=== PATIENT | female | born 1955 | race Caucasian/White ===

== ENCOUNTER 2016-11-05 15:08 | Inpatient (IN) | payer OTHER ==
[~2016-11-05] VITALS: Ht 162.6 cm; Wt 97.5 kg
[~2016-11-05 15:08] MED LIST: [UNRECOGNIZED DRUG - REMARK]
[2016-11-05 15:17] VITALS: BP 114/60
[2016-11-05] MEDS ORDERED: ASPIRIN 81 MG TAB.CHEW PO ONE (15:25)
[2016-11-05 16:04] LABS: BASOPHILS # (AUTO) 0.3 K/uL (0.00-0.22); EOSINOPHILS # (AUTO) 0.1 K/uL (0-0.4); HEMATOCRIT 44.9 % (36-48); HEMOGLOBIN 14.9 g/dL (12.0-16.0); LYMPHOCYTES # (AUTO) 2.3 K/uL (2.5-16.5); MEAN CORPUSCULAR HEMOGLOBIN 30 pg (27-31); MEAN CORPUSCULAR HGB CONC 33 g/dL (33-37); MEAN CORPUSCULAR VOLUME 90 fL (80-94); MONOCYTES # (AUTO) 0.7 K/uL (0.8-1.0); PLATELET COUNT (AUTO) 265 K/uL (140-450); RED BLOOD CELL COUNT(AUTO) 4.98 MIL/uL (4.20-5.40); RED CELL DISTRIBUTION WIDTH 13.3 % (11.6-13.7); WHITE BLOOD COUNT (AUTO) 8.4 K/uL (4.8-10.8)
[2016-11-05 16:04] LABS: BILIRUBIN,URINE NEGATIVE (NEGATIVE); BLOOD, URINE 1+ (NEGATIVE); LEUKOCYTE ESTERASE ,URINE 2+ (NEGATIVE); NITRITE, URINE NEGATIVE (NEGATIVE); UGLUCOSE NEGATIVE (NEGATIVE)
[2016-11-05 16:05] LABS: APPEARANCE,URINE HAZY (CLEAR); COLOR,URINE STRAW (YELLOW)
[2016-11-05 16:19] LABS: ANION GAP 11.2 (8-16); CARBON DIOXIDE 27.7 mmol/L (21-32); CREATININE 0.9 mg/dL (0.6-1.3); POTASSIUM 3.9 mmol/L (3.5-5.1)
[2016-11-05 16:22] LABS: RBC,URINE NONE SEEN /HPF (0-5); WBC,URINE 20-60 /HPF (0-5)
[2016-11-05 16:23] LABS: PROTHROMBIN TIME 10.9 secs (10.8-13.4)
[2016-11-05 16:24] LABS: ALBUMIN 4.1 g/dL (3.4-5.0); TOTAL BILIRUBIN 1.1 mg/dL (0.0-1.0)
--- NOTE | 2016-11-05 17:59 | NUR ---
PT TO BED 4.
--- NOTE | 2016-11-05 17:59 | NUR ---
61F BIB FAMILY MID-CHEST PAIN X 0900 TODAY. HX: PT STATES " MENTALLY SLOW", HYPERLIPIDEMIA RX: FAMILY STATES DOES NOT REMEMBER DENIES N/V/D; SKIN IS PINK/WARM/DRY; AAOX4 WITH EVEN AND STEADY GAIT; LUNGS CLEAR BL; HR EVEN AND REGULAR; PT DENIES ANY FEVER, CP, SOB, OR COUGH AT THIS TIME; PATIENT STATES CHEST PAIN OF 1/10 AT THIS TIME; VSS; PATIENT POSITIONED FOR COMFORT; HOB ELEVATED; BEDRAILS UP X2; BED DOWN. ER MD MADE AWARE OF PT STATUS.
[2016-11-05] MEDS ORDERED: ASPIRIN 81 MG TAB.CHEW ONE (18:10)
--- NOTE | 2016-11-05 19:03 | NUR ---
PT RESTING COMFORTABLY AT THIS TIME NO ACUTE DISTRESS NOTED, WILL CONTINUE TO MONITOR
[2016-11-05] MEDS ORDERED: MORPHINE SULFATE 2 MG/ML SYR IVP ONE (19:25)
[2016-11-05] MEDS ORDERED: NITROGLYCERIN 2% 1 GM PKT TP ONE (19:25)
--- NOTE | 2016-11-05 19:28 | NUR ---
REPORT GIVEN TO RN CLARIZE
--- NOTE | 2016-11-05 19:30 | NUR ---
RECEIVED REPORT FROM ANGELINA PAULSON. AAOX4. NO SIGNS OF DISTRESS AT THIS TIME.
[2016-11-05] MEDS ORDERED: DOCUSATE SODIUM 100 MG GELCAP PO PRN (19:50)
[2016-11-05] MEDS ORDERED: ONDANSETRON 4 MG/2 ML VIAL IM/IVP PRN (19:50)
[2016-11-05] MEDS ORDERED: MORPHINE SULFATE 2 MG/ML SYR IVP PRN (19:50)
[2016-11-05] MEDS ORDERED: ACETAMINOPHEN 325 MG TAB PO PRN (19:50)
[2016-11-05] MEDS ORDERED: HYDROcodone/APAP 7.5/325 MG 1 TAB PO PRN (19:50)
[2016-11-05 19:56] LABS: CHOL/HDL RATIO 3.4 (1-4.5)
--- NOTE | 2016-11-05 20:00 | NUR ---
DR. VICTOR AT BEDSIDE EVALUATING PT.
[2016-11-05 20:07] LABS: CREATINE KINASE MB 0.2 ng/mL (0-3.6)
[2016-11-05] MEDS ORDERED: cefTRIAXone 1,000 MG VIAL ONE (20:28)
--- NOTE | 2016-11-05 20:45 | NUR ---
Patient will be admitted to care of DR. ARNETT. Admited to TELE . Will go to room 120A. Belongings list completed. Report to ANGELINA HOOPER.
[2016-11-05 20:46] LABS: FREE T4 (FREE THYROXINE) 0.9 ng/dL (0.76-1.46); MAGNESIUM 2.1 mg/dL (1.8-2.4); PHOSPHORUS 3.7 mg/dL (2.5-4.9); THYROID STIMULATING HORMONE 1.34 uIU/mL (0.34-3.74)
--- NOTE | 2016-11-05 21:00 | NUR ---
PT TRANSFERRED TO TELE RM 120-A ON GUARDED CONDITION VIA GURNEY ACCOMPANIED BY RN AND EMT.
[2016-11-05 21:15] VITALS: BP 110/59
--- NOTE | 2016-11-05 21:15 | NUR ---
PATIENT ADMITTED TO THE UNIT FROM ER. PATIENT AWAKE, ALERT, AND ORIENTED. NO SIGNS AND SYMPTOMS OF DISTRESS NOTED. PATIENT COMPLAINS OF 1/10 CHEST PAIN. NO SOB. IV SITE NOTED ON LEFT HAND, SALINE LOCKED. NITROGLYCERIN PATCH NOTED ON LEFT UPPER CHEST. BED IN LOWEST POSITION, SIDE RAILS UP AND CALL LIGHT WITHIN REACH. WILL CONTINUE TO MONITOR.
[2016-11-05] MEDS: NACL 0.9% 1,000 ML IV SCH (22:00)
--- NOTE | 2016-11-05 23:43 | NUR ---
SPOKE WITH DR. VICTOR ABOUT PATIENT'S NITROGLYCERIN PATCH AND WHETHER TO KEEP IT ON OVERNIGHT. PATIENT COMPLAINS OF NO CHEST PAIN. AND VITAL SIGNS ARE WITHIN NORMAL LIMITS. DR. VICTOR SAID IT WAS OK TO REMOVE PATCH. WILL CONTINUE TO MONITOR PATIENT.
[2016-11-06] VITALS: BP 108/61
[2016-11-06 04:00] VITALS: BP 101/67
[2016-11-06 07:14] LABS: BASOPHILS # (AUTO) 0.2 K/uL (0.00-0.22); BASOPHILS % (AUTO) 2.1 % (0.0-2.0); EOSINOPHILS # (AUTO) 0.2 K/uL (0-0.4); EOSINOPHILS % (AUTO) 2.2 % (0.0-4.0); HEMATOCRIT 39.4 % (36-48); HEMOGLOBIN 13.5 g/dL (12.0-16.0); LYMPHOCYTES # (AUTO) 2.7 K/uL (2.5-16.5); LYMPHOCYTES % (AUTO) 32.6 % (20.5-51.1); MEAN CORPUSCULAR HEMOGLOBIN 31 pg (27-31); MEAN CORPUSCULAR HGB CONC 34 g/dL (33-37); MEAN CORPUSCULAR VOLUME 90 fL (80-94); MONOCYTES # (AUTO) 0.5 K/uL (0.8-1.0); NEUTROPHILS # (AUTO) 4.7 K/uL (1.8-7.7); NEUTROPHILS % (AUTO) 57.1 % (42.2-75.2); PLATELET COUNT (AUTO) 227 K/uL (140-450); RED BLOOD CELL COUNT(AUTO) 4.37 MIL/uL (4.20-5.40); RED CELL DISTRIBUTION WIDTH 13.2 % (11.6-13.7); WHITE BLOOD COUNT (AUTO) 8.3 K/uL (4.8-10.8)
--- NOTE | 2016-11-06 07:16 | NUR ---
PATIENT REPORT GIVEN AT BEDSIDE TO MORNING NURSE. PATIENT IS IN STABLE CONDITION.
--- NOTE | 2016-11-06 07:17 | NUR ---
RECEIVED REPORT FROM [employer] AGENT RN. PT IS AWAKE, AAO X 4. NO COMPLAINT OF PAIN OR DISCOMFORT AT THIS TIME. NO SIGNS OF ACUTE DISTRESS NOTED. IV G20 TO LEFT HAND FLOWING THE ORDERED IVF. PT IS RESTING COMFORTABLY IN BED. BED IN LOWEST POSITION AND CALL LIGHT WITHIN REACH. WILL CONTINUE TO MONITOR.
[2016-11-06 07:24] LABS: CARBON DIOXIDE 26.8 mmol/L (21-32); CREATININE 0.8 mg/dL (0.6-1.3); POTASSIUM 3.8 mmol/L (3.5-5.1)
[2016-11-06 07:47] VITALS: BP 121/74
[2016-11-06 08:18] LABS: T4 (THYROXINE) 9.3 ug/dL (4.5-12.0)
[2016-11-06] MEDS ORDERED: SIMVASTATIN 10 MG TAB PO SCH ×2 (08:30→21:00)
[2016-11-06] MEDS: LACTOBACILLUS RHAMNOSUS GG 1 EACH CAP PO SCH (09:01)
--- NOTE | 2016-11-06 10:40 | NUR ---
PATIENT HAS BEEN SCREENED AND CATEGORIZED LOW NUTRITION RISK. PATIENT WILL BE SEEN WITHIN 7 DAYS OF ADMISSION. 11/12/16 VINNIE OSEGUERA MBA, RD
--- NOTE | 2016-11-06 11:03 | NUR ---
FAMILY, LAVON CAME, AND ACCORDING TO HIM PT TAKES, PAROXETINE 20 MG QHS AT HOME AND MULTIVITAMINS. DR. MOORE MADE AWARE AND TO CHECK AND PUT IN ORDER.
[2016-11-06] MEDS ORDERED: PAX20 PO (11:22)
[2016-11-06] MEDS ORDERED: [UNRECOGNIZED DRUG - CODE] PO (11:22)
[2016-11-06 11:46] VITALS: BP 108/65
[2016-11-06] MEDS ORDERED: ACARBOSE 50 MG TAB PO SCH (12:00)
[2016-11-06] MEDS: NACL 0.9% 1,000 ML IV SCH (12:16)
[2016-11-06 16:00] VITALS: BP 106/60
--- NOTE | 2016-11-06 16:42 | NUR ---
ASSISTED PT GOING TO THE BATHROOM. PT STABLE, ON STANDBY ASSIST. NO SOB, DENIES ANY PAIN OR DISCOMFORT AT THIS TIME.
[2016-11-06] MEDS ORDERED: PARoxetine 20 MG TAB PO SCH (17:00)
--- NOTE | 2016-11-06 19:28 | NUR ---
PT KEPT CLEAN, DRY AND COMFORTABLE, NEEDS ATTENDED, ENDORSED TO NEXT SHIFT ON STABLE CONDITION, FOR CONTINUITY OF CARE. NO SOB NOTED. DENIES ANY PAIN OR DISCOMFORT AT THIS TIME.
--- NOTE | 2016-11-06 19:29 | NUR ---
PATIENT REPORT RECEIVED FROM MORNING NURSE. PATIENT IS AWAKE, ALERT AND ORIENTED. NO SIGNS AND SYMPTOMS OF DISTRESS NOTED. NO COMPLAINTS OF PAIN AT THIS TIME. IV SITE NOTED ON LEFT HAND. IVF INFUSING WELL. SCD IS IN PLACE. BED IN LOWEST POSITION, SIDE RAILS UP AND CALL LIGHT WITHIN REACH. WILL CONTINUE TO MONITOR.
[2016-11-06 20:00] VITALS: BP 99/62
--- NOTE | 2016-11-06 21:00 | NUR ---
QUALITY PROCESS AUDITOR ASSISTED PATIENT TO RESTROOM. PATIENT VOIDED. NO SIGNS AND SYMPTOMS OF DISTRESS NOTED. NO SOB. WILL CONTINUE TO MONITOR
[2016-11-07] VITALS: BP 111/67
--- NOTE | 2016-11-07 | NUR ---
CHECKED ON PATIENT, PATIENT IS ASLEEP. NO SIGNS AND SYMPTOMS OF DISTRESS NOTED. BED IN LOWEST POSITION, SIDE RAILS UP AND CALL LIGHT WITHIN REACH. WILL CONTINUE TO MONITOR.
[2016-11-07 04:00] VITALS: BP 121/72
[2016-11-07] MEDS: NACL 0.9% 1,000 ML IV SCH (04:45)
--- NOTE | 2016-11-07 07:20 | NUR ---
PATIENT REPORT GIVEN AT BEDSIDE TO MORNING NURSE. PATIENT IS IN STABLE CONDITION
--- NOTE | 2016-11-07 07:25 | NUR ---
RECEIVED PT REPORT AT BEDSIDE FROM NIGHT NURSE. PATIENT IS AAOX4 AND SHOWS NO S/S OF ACUTE DISTRESS ON ROOM AIR. PT DENIES PAIN. PATIENT IV NOTED ON THE L H WITH IVF'S INFUSING WELL. SKIN IS INTACT. PATIENT ON TELE MONITOR. DISCUSSED WITH PT POC FOR TODAY AND VERBALIZED UNDERSTANDING. THE BED IS LOWERED WITH CALL LIGHT WITHIN REACH. FALL RISK PROTOCOL IS IN PLACE WITH SIGNS POSTED AND BED ALARM ACTIVATED.
[2016-11-07 08:00] VITALS: BP 111/59
[2016-11-07] MEDS: LACTOBACILLUS RHAMNOSUS GG 1 EACH CAP PO SCH (08:43)
--- NOTE | 2016-11-07 08:45 | NUR ---
ADMINISTERED SCHEDULED MEDICATIONS. PATIENT TOLERATED WELL. THE BED IS LOWERED WITH CALL LIGHT WITHIN REACH. ALL NEEDS MET AT THIS TIME.
[2016-11-07] MEDS ORDERED: MULTIVITAMIN 1 TAB PO SCH (09:00)
--- NOTE | 2016-11-07 10:00 | NUR ---
PATIENT PULLED IV OUT WITH CANNULA INTACT. PT REFUSES TELE BOX. PT IS DRESSED AND STATED DR LET HER KNOW SHE WILL BE LEAVING AT [address]. NOTIF[address] MOORE OF NO IV ACCESS AND TELE BOX REFUSAL. DR WILL PLACE ORDERS FOR MS AND OKAY TO HAVE NO IV ACCESS. STATES HE DID NOT TELL HER SHE WILL BE DC BY 1200. PT IS AWARE DC WILL BE SOMETIME AFTER 1200. PT AGREES AND IS OKAY. ALL NEEDS MET AT THIS TIME.
[2016-11-07] MEDS ORDERED: NITR100C7 PO (11:23)
[2016-11-07 12:00] VITALS: BP 134/70
--- NOTE | 2016-11-07 12:15 | NUR ---
PATIENT IS SITTING IN BED AND SHOWS NO S/S OF ACUTE DISTRESS ON ROOM AIR. ALL NEEDS MET AT THIS TIME.
--- NOTE | 2016-11-07 13:55 | NUR ---
PT HAS BEEN DISCHARGED. ALL DISCHARGE INSTRUCTIONS GIVEN ALL PAPERWORK SIGNED. ALL QUESTIONS ANSWERED. PT VERBALIZED UNDERSTANDING OF CONTINUITY OF CARE AT HOME. ALL BELONGINGS WITH PATIENT. PATIENT REFUSED WHEELCHAIR AND AMB OFF UNIT WITH FAMILY MEMBER PRESENT AT SIDE. PATIENT LEFT UNIT IN STABLE CONDITION.
== END 2016-11-07 13:55 | disposition home or self-care (01) | DRG 206 ==
LOC: MED 15:08 → MTU 20:15
PROVIDERS: ADMIT Family Medicine Sports Medicine; ATTEND Family Medicine Sports Medicine
DX: M94.0 Chondrocostal junction syndrome [Tietze] (principal); N39.0 Urinary tract infection, site not specified; K21.9 Gastro-esophageal reflux disease without esophagitis; E78.5 Hyperlipidemia, unspecified; E66.9 Obesity, unspecified; F17.210 Nicotine dependence, cigarettes, uncomplicated; Z68.37 Body mass index [BMI] 37.0-37.9, adult; Z98.51 Tubal ligation status
CPT/HCPCS: 36415; 71010; 80048; 80053; 81001; 81025; 82550; 82553; 83036; 83735; 83880; 84100; 84436; 84439; 84443; 84479; 84484; 85025; 85379; 85610; 85730; 87081; 87086; 93005; 96374; 99285; J0696; J2270; J2405; J7030; J7042; J7060

== ENCOUNTER 2017-06-10 15:48 | Emergency (ER) | payer OTHER, MEDICAID ==
[~2017-06-10] VITALS: Ht 162.6 cm; Wt 99.1 kg
[~2017-06-10 15:48] MED LIST changes: +NITR100C7 PO; +PAX20 PO; +[UNRECOGNIZED DRUG - CODE] PO; -[UNRECOGNIZED DRUG - REMARK]
[2017-06-10 15:52] VITALS: BP 122/66
--- NOTE | 2017-06-10 16:00 | NUR ---
62 Y/O F THAT WAS BIB BOYFRIEND DUE TO A BITE ON HER R CHEST AREA. PT. HAS 0/10 PAIN. PT. STATES " I WENT TO SLEEP AND WHEN I WOKE UP ON 06/09/17 I WOKE UP WITH THE BITE ON MY CHEST AND IT ITCHES A LOT AT TIMES BUT I DO NOT HAVE ANY PAIN".PT HAS ABOUT A QUARTER SIZE REDNESS AREA TO HER R SIDE OF HER CHEST THAT IS HOT TO TOUCH AND UPON PALPATION A HARD NODULE FELT. PT. DENIES SOB , DENIES CHEST PAIN, NO N/V/D, DENIES HAVING ANY COUGH. BOYFRIEND AT BEDSIDE. DR. PUGH NOTIFIED OF PT STATUS . SAFETY PRECAUTIONS IMPLEMENTED. WILL CONTINUE TO MONITOR.
--- NOTE | 2017-06-10 16:03 | NUR ---
PT AMBULATES TO BED 4
[2017-06-10] MEDS ORDERED: BACITRACIN OINT 500 UNITS/GM PKT TP ONE (16:20)
--- NOTE | 2017-06-10 16:25 | NUR ---
ATTEMPTED TO D/C PT AT THIS TIME. PT'S SPOUSE REFUSED D/C AND REQUESTED TO SPEAK W/ THE MD. SPOUSE STATED, "I KNOW SOMETHING IS WRONG AND I WANT AN XRAY." MD HERNANDEZ NOTIFIED OF PT'S REQUEST.
--- NOTE | 2017-06-10 16:27 | NUR ---
DR. PUGH IN ROOM WITH PATIENT.
[2017-06-10 16:34] VITALS: BP 122/66
--- NOTE | 2017-06-10 16:34 | NUR ---
Patient discharged with v/s stable. Written and verbal after care instructions given and explained. Patient verbalized understanding. Ambulatory with steady gait. All questions addressed prior to discharge. Advised to follow up with PMD.
== END 2017-06-10 16:34 | disposition home or self-care (01) ==
LOC: MED 15:48
DX: S20.361A Insect bite (nonvenomous) of right front wall of thorax, initial encounter (principal); W57.XXXA Bitten or stung by nonvenomous insect and other nonvenomous arthropods, initial encounter; Y93.89 Activity, other specified; Y92.89 Other specified places as the place of occurrence of the external cause; Y99.8 Other external cause status
CPT/HCPCS: 99283

== ENCOUNTER 2018-03-26 13:45 | Emergency (ER) | payer OTHER, MEDICAID ==
[~2018-03-26] VITALS: Ht 165.1 cm; Wt 90.7 kg
[2018-03-26 14:00] VITALS: BP 109/65
--- NOTE | 2018-03-26 14:00 | NUR ---
PATIENT AMBULATED TO ER BED 3.
--- NOTE | 2018-03-26 14:05 | NUR ---
PT IS A 63 Y/O FEMALE WHO PRESENTS TO THE ED S/P FALL REPORTS R SHOULDER/R KNEE PAIN. PT REPORTS 7/10 ACHING R KNEE AND R SHOULDER PAIN. NO LOC, NO OBVIOUS TRAUMA/DEFORMITY. PT DENIES CP, SOB, N/V/D. PT AWAKE AND ALERT, RR EVEN/UNLABORED. PT REPOSITIONED FOR COMFORT, BED IN LOWEST POSITION. ER MD DR. GAYLE NOTIFIED. WILL CONTINUE TO MONITOR. PMH---MENTAL RETARDATION NKA
--- NOTE | 2018-03-26 15:31 | NUR ---
Patient being evaluated by physician at bedside.
[2018-03-26 15:54] VITALS: BP 110/69
== END 2018-03-26 15:54 | disposition home or self-care (01) ==
LOC: MED 13:45
DX: S43.401A Unspecified sprain of right shoulder joint, initial encounter (principal); Z79.899 Other long term (current) drug therapy; W01.0XXA Fall on same level from slipping, tripping and stumbling without subsequent striking against object, initial encounter; Y93.89 Activity, other specified; Y92.481 Parking lot as the place of occurrence of the external cause; Y99.8 Other external cause status
CPT/HCPCS: 73020; 73501; 99283

== ENCOUNTER 2018-04-25 22:23 | Emergency (ER) | payer OTHER, MEDICAID ==
[~2018-04-25] VITALS: Ht 165.1 cm; Wt 102.2 kg
[2018-04-25 22:35] VITALS: BP 127/56
--- NOTE | 2018-04-25 22:37 | NUR ---
TO LOBBY, VSS.
[2018-04-25 23:08] LABS: BASOPHILS # (AUTO) 0.1 K/uL (0.00-0.22); BASOPHILS % (AUTO) 0.7 % (0.0-2.0); EOSINOPHILS # (AUTO) 0.2 K/uL (0-0.4); EOSINOPHILS % (AUTO) 2.6 % (0.0-4.0); HEMATOCRIT 39.6 % (36-48); HEMOGLOBIN 13.8 g/dL (12.0-16.0); LYMPHOCYTES # (AUTO) 3.1 K/uL (2.5-16.5); LYMPHOCYTES % (AUTO) 33.6 % (20.5-51.1); MEAN CORPUSCULAR HEMOGLOBIN 30 pg (27-31); MEAN CORPUSCULAR HGB CONC 35 g/dL (33-37); MEAN CORPUSCULAR VOLUME 86.9 fL (80-94); MONOCYTES # (AUTO) 0.6 K/uL (0.8-1.0); MONOCYTES % (AUTO) 6.5 % (1.7-9.3); NEUTROPHILS # (AUTO) 5.2 K/uL (1.8-7.7); NEUTROPHILS % (AUTO) 56.6 % (42.2-75.2); PLATELET COUNT (AUTO) 257 K/uL (140-450); RED BLOOD CELL COUNT(AUTO) 4.55 MIL/uL (4.20-5.40); RED CELL DISTRIBUTION WIDTH 14.2 % (11.6-13.7); WHITE BLOOD COUNT (AUTO) 9.2 K/uL (4.8-10.8)
[2018-04-25 23:25] LABS: PROTHROMBIN TIME 9.4 secs (10.8-13.4)
--- NOTE | 2018-04-25 23:53 | NUR ---
PT RETURN FROM US TO [facility]IA [facility]
--- NOTE | 2018-04-26 00:02 | NUR ---
PT TAKEN TO BED 6
--- NOTE | 2018-04-26 00:02 | NUR ---
PATIENT PRESENTS TO ED WITH VAG BLEEDING X 1 MONTH. PT'S BOYFRIEND STATES PT IS "MENTALLY SLOW", THAT PRIMARY MD DIAGNOSED PT WITH "VAGINAL INFECTION" AND STARTED PT ON ABX AND THAT IS WHEN THE VAGINAL BLEEDING STARTED. DENIES N/V/D. PATIENT STATES PAIN OF 0/10 AT THIS TIME; VSS; PATIENT POSITIONED FOR COMFORT; HOB ELEVATED; BEDRAILS UP X2; BED DOWN. ER MD MADE AWARE OF PT STATUS.
--- NOTE | 2018-04-26 01:10 | NUR ---
Dr. Bailey evaluating patient at bedside.
[2018-04-26 01:24] VITALS: BP 122/60
== END 2018-04-26 01:24 | disposition home or self-care (01) ==
LOC: MED 22:23
DX: N93.9 Abnormal uterine and vaginal bleeding, unspecified (principal); Z79.2 Long term (current) use of antibiotics; Z79.899 Other long term (current) drug therapy
CPT/HCPCS: 36415; 76830; 81025; 85025; 85610; 85730; 99284

== ENCOUNTER 2018-05-23 16:51 | Emergency (ER) | payer OTHER, MEDICAID ==
[~2018-05-23] VITALS: Ht 162.6 cm; Wt 100.7 kg
[2018-05-23 17:05] VITALS: BP 110/53
--- NOTE | 2018-05-23 17:08 | NUR ---
PT ACCOMPANIED BY SPOUSE----WILL CONTINUE TO WAIT IN ER LOBBY FOR AVAILABLE ROOM FOR MD JOHNSON
--- NOTE | 2018-05-23 17:50 | NUR ---
PT AMBULATED TO CHAIR D AMBULATED WITH STEADY GAIT. CAME IN WITH C/O POSSIBLE BUG BITE TO RIGHT ARM, RIGHT ARM NOTED WITH +REDNESS, +EDEMA. REPORTS 10/10 PAIN. DENIES FEVER/CHILLS, N/V/D. DENIES PMH
[2018-05-23] MEDS ORDERED: IBUPROFEN 600 MG TAB PO ONE (18:05)
[2018-05-23] MEDS ORDERED: cefTRIAXone 1,000 MG in LIDOCAINE MPF 1% - 5 mL VIAL 2.1 ML IM ONE (18:05)
[2018-05-23 18:45] VITALS: BP 118/72
--- NOTE | 2018-05-23 18:45 | NUR ---
Patient discharged with v/s stable. Written and verbal after care instructions given and explained. Patient alert, oriented and verbalized understanding of instructions. Ambulatory with steady gait. All questions addressed prior to discharge. ID band removed. Patient advised to follow up with PMD. Rx of KEFLEX, BACTRIM DS, IBUPROFEN given. Patient educated on indication of medication including possible reaction and side effects. Opportunity to ask questions provided and answered.
== END 2018-05-23 18:45 | disposition home or self-care (01) ==
LOC: MED 16:51
DX: L03.113 Cellulitis of right upper limb (principal); Z79.2 Long term (current) use of antibiotics; Z79.3 Long term (current) use of hormonal contraceptives
CPT/HCPCS: 96372; 99283; J0696; J2001

== ENCOUNTER 2018-07-06 21:54 | Emergency (ER) | payer OTHER, MEDICAID ==
[~2018-07-06] VITALS: Ht 167.6 cm; Wt 81.6 kg
[2018-07-06 21:59] VITALS: BP 97/50
--- NOTE | 2018-07-06 22:04 | NUR ---
AMBULATED TO LOBBY. PROVIDED WITH URINE CUP.
--- NOTE | 2018-07-06 22:58 | NUR ---
PT AMBULATED TO ER BED 4
--- NOTE | 2018-07-06 23:00 | NUR ---
63/F PRESENTS TO ED WITH FRIEND, C/O URINARY BURNING, FREQUENCY AND DYSURIA, X2 DAYS. PT DENIES FEVER, CP, SOB, N/V. AOX4, SKIN NORMAL WARM DRY, RR EVEN AND UNLABORED. HX HLD, APPENDECTOMY
--- NOTE | 2018-07-06 23:02 | NUR ---
DR. CISSE BEDSIDE EVALUATING PT
[2018-07-06 23:38] LABS: BASOPHILS # (AUTO) 0.1 K/uL (0.00-0.22); BASOPHILS % (AUTO) 0.6 % (0.0-2.0); EOSINOPHILS # (AUTO) 0.2 K/uL (0-0.4); EOSINOPHILS % (AUTO) 2.2 % (0.0-4.0); HEMATOCRIT 40.6 % (36-48); HEMOGLOBIN 14.2 g/dL (12.0-16.0); LYMPHOCYTES # (AUTO) 2.9 K/uL (2.5-16.5); LYMPHOCYTES % (AUTO) 30.9 % (20.5-51.1); MEAN CORPUSCULAR HEMOGLOBIN 31 pg (27-31); MEAN CORPUSCULAR HGB CONC 35 g/dL (33-37); MEAN CORPUSCULAR VOLUME 87.6 fL (80-94); MONOCYTES # (AUTO) 0.4 K/uL (0.8-1.0); MONOCYTES % (AUTO) 4.6 % (1.7-9.3); NEUTROPHILS # (AUTO) 5.8 K/uL (1.8-7.7); NEUTROPHILS % (AUTO) 61.7 % (42.2-75.2); PLATELET COUNT (AUTO) 240 K/uL (140-450); RED BLOOD CELL COUNT(AUTO) 4.63 MIL/uL (4.20-5.40); RED CELL DISTRIBUTION WIDTH 14.2 % (11.6-13.7); WHITE BLOOD COUNT (AUTO) 9.4 K/uL (4.8-10.8)
[2018-07-06 23:39] LABS: APPEARANCE,URINE SL CLOUDY (CLEAR); BILIRUBIN,URINE NEGATIVE (NEGATIVE); BLOOD, URINE 2+ (NEGATIVE); COLOR,URINE YELLOW (YELLOW); LEUKOCYTE ESTERASE ,URINE 1+ (NEGATIVE); NITRITE, URINE NEGATIVE (NEGATIVE); UGLUCOSE TRACE (NEGATIVE)
[2018-07-06 23:47] LABS: ANION GAP 15.1 (8-16); CARBON DIOXIDE 25.7 mmol/L (21-32); CREATININE 0.9 mg/dL (0.6-1.3); POTASSIUM 3.8 mmol/L (3.5-5.1)
[2018-07-06 23:53] LABS: ALBUMIN 3.7 g/dL (3.4-5.0); TOTAL BILIRUBIN 0.8 mg/dL (0.0-1.0)
[2018-07-06 23:59] LABS: WBC,URINE 0-5 /HPF (0-5)
[2018-07-07 00:25] VITALS: BP 102/58
== END 2018-07-07 00:25 | disposition home or self-care (01) ==
LOC: MED 21:54
DX: N39.0 Urinary tract infection, site not specified (principal); E78.5 Hyperlipidemia, unspecified; Z90.49 Acquired absence of other specified parts of digestive tract; Z79.899 Other long term (current) drug therapy
CPT/HCPCS: 36415; 80053; 81001; 81025; 85025; 87086; 99283

== ENCOUNTER 2018-08-24 16:38 | Emergency (ER) | payer OTHER, MEDICAID ==
[~2018-08-24] VITALS: Ht 165.1 cm; Wt 81.6 kg
[2018-08-24 16:45] VITALS: BP 147/74
--- NOTE | 2018-08-24 16:48 | NUR ---
PT TAKEN TO CHAIR C VIA WHEELCHAIR UNTIL BED OPENS UP.
--- NOTE | 2018-08-24 16:58 | NUR ---
1637-- PT KISHOR RIZZOS TO WC
--- NOTE | 2018-08-24 17:10 | NUR ---
PT IS A 63 Y/O FEMALE WHO PRESENTS TO THE ED C/O MECHANICAL FALL. PER PT SHE WAS AT [facility] AND FELL. REPORTS HITTING R HAND, R SIDE OF FACE, R KNEE. PT REPORTS 10/10 ACHING PAIN THAT DOES NOT RADIATE. CMS INTACT, NO OBVIOUS TRAUMA/DEFORMITY. NOTICED BRUISING TO R FACE AND CONTROLLED BLEEDING TO R HAND. PT AWAKE AND ALERT, RR EVEN/UNLABORED. PT REPOSITIONED FOR COMFORT, BED IN LOWEST POSITION. ER MD DR. FARRELL NOTIFIED. WILL CONTINUE TO MONITOR. MEDHX:MR RX:UNKOWN, PER EMS NO BLOOD THINNERS
--- NOTE | 2018-08-24 18:36 | NUR ---
DR FARRELL AT BEDSIDE FOR PT EVAL
--- NOTE | 2018-08-24 18:55 | NUR ---
PATIENT TAKEN TO BATHROOM TO GIVE URINE. PT MISSED TOILET. ER MD MADE AWARE.
--- NOTE | 2018-08-24 19:01 | NUR ---
PT TAKEN BACK TO THE ROOM BY RUDY ESTRADA FROM CT.
--- NOTE | 2018-08-24 19:15 | NUR ---
PATIENT RESTING AT THIS TIME. NO SIGNS OF DISTRESS.
[2018-08-24 19:40] LABS: BASOPHILS % (AUTO) 0.4 % (0.0-2.0); EOSINOPHILS # (AUTO) 0.2 K/uL (0-0.4); EOSINOPHILS % (AUTO) 2.1 % (0.0-4.0); HEMATOCRIT 41.3 % (36-48); HEMOGLOBIN 14.3 g/dL (12.0-16.0); LYMPHOCYTES # (AUTO) 2.6 K/uL (2.5-16.5); LYMPHOCYTES % (AUTO) 27.4 % (20.5-51.1); MEAN CORPUSCULAR HEMOGLOBIN 31 pg (27-31); MEAN CORPUSCULAR HGB CONC 35 g/dL (33-37); MEAN CORPUSCULAR VOLUME 88.1 fL (80-94); MONOCYTES # (AUTO) 0.4 K/uL (0.8-1.0); MONOCYTES % (AUTO) 4.5 % (1.7-9.3); NEUTROPHILS # (AUTO) 6.1 K/uL (1.8-7.7); NEUTROPHILS % (AUTO) 65.6 % (42.2-75.2); PLATELET COUNT (AUTO) 261 K/uL (140-450); RED BLOOD CELL COUNT(AUTO) 4.68 MIL/uL (4.20-5.40); RED CELL DISTRIBUTION WIDTH 14.4 % (11.6-13.7); WHITE BLOOD COUNT (AUTO) 9.4 K/uL (4.8-10.8)
[2018-08-24 19:47] LABS: ANION GAP 13.8 (8-16); CARBON DIOXIDE 27.6 mmol/L (21-32); CREATININE 0.9 mg/dL (0.6-1.3); POTASSIUM 4.4 mmol/L (3.5-5.1)
[2018-08-24 19:53] LABS: ALBUMIN 3.7 g/dL (3.4-5.0); TOTAL BILIRUBIN 0.7 mg/dL (0.0-1.0)
--- NOTE | 2018-08-24 19:56 | NUR ---
PATIENT TAKEN TO XRAY WITH TECH VIA [employer].
--- NOTE | 2018-08-24 20:30 | NUR ---
PATIENT RETURN FROM XRAY.
--- NOTE | 2018-08-24 21:00 | NUR ---
DR. HESTER SPEAKING WITH PATIENT AND FAMILY.
[2018-08-24 21:08] LABS: APPEARANCE,URINE CLEAR (CLEAR); BILIRUBIN,URINE NEGATIVE (NEGATIVE); BLOOD, URINE TRACE-L (NEGATIVE); COLOR,URINE YELLOW (YELLOW); LEUKOCYTE ESTERASE ,URINE TRACE (NEGATIVE); NITRITE, URINE NEGATIVE (NEGATIVE); UGLUCOSE NEGATIVE (NEGATIVE)
[2018-08-24] MEDS ORDERED: MORPHINE SULFATE 4 MG/ML SYR IVP ONE (21:15)
--- NOTE | 2018-08-24 22:30 | NUR ---
PATIENT RESTING AT THIS TIME. NO SIGNS OF DISTRESS.
[2018-08-25] VITALS: BP 129/71
--- NOTE | 2018-08-25 | NUR ---
Patient to be transferred to [facility]. Is being transferred due to CONTINUATION OF CARE. Receiving facility has accepting physician and available space. ER physician has signed transfer form. Patient or responsible constitution party has agreed to transfer and signed form. Patient belongings inventoried and will be sent with patient. Copy of nursing notes, lab reports, EKG, Physicians Orders and X-rays to be sent with patient. Report called to SIL ALFARO at receiving facility. [facility] ambulance service has been called for transfer. HERE NOW.
== END 2018-08-25 | disposition short-term general hospital (02) ==
LOC: MED 16:38
DX: S32.029A Unspecified fracture of second lumbar vertebra, initial encounter for closed fracture (principal); S22.089A Unspecified fracture of T11-T12 vertebra, initial encounter for closed fracture; S40.011A Contusion of right shoulder, initial encounter; S40.012A Contusion of left shoulder, initial encounter; S00.81XA Abrasion of other part of head, initial encounter; M79.601 Pain in right arm; M25.561 Pain in right knee; M25.562 Pain in left knee; R55 Syncope and collapse; I63.89 Other cerebral infarction; Z79.899 Other long term (current) drug therapy; W19.XXXA Unspecified fall, initial encounter; Y93.89 Activity, other specified; Y92.89 Other specified places as the place of occurrence of the external cause; Y99.8 Other external cause status
CPT/HCPCS: 36415; 70450; 70486; 71045; 72072; 72110; 72125; 73030; 73110; 73130; 73562; 80053; 81001; 84484; 85025; 87086; 90471; 90715; 93005; 96374; 99291; J2270

== ENCOUNTER 2019-02-25 23:32 | Emergency (ER) | payer OTHER, MEDICAID ==
[~2019-02-25] VITALS: Ht 160 cm; Wt 90.7 kg
[2019-02-25 23:32] VITALS: BP 154/72
--- NOTE | 2019-02-26 00:38 | NUR ---
PT TAKEN TO CHAIR B VIA W/C
[2019-02-26] MEDS ORDERED: ONDANSETRON 4 MG/2 ML VIAL IVP ONE (00:55)
[2019-02-26] MEDS ORDERED: MORPHINE SULFATE 4 MG/ML SYR IVP ONE ×2 (00:55→03:10)
[2019-02-26] MEDS ORDERED: NACL 0.9% 1,000 ML IV ONE (00:55)
[2019-02-26 01:13] LABS: HEMATOCRIT 39.9 % (36-48); HEMOGLOBIN 13.6 g/dL (12.0-16.0); MEAN CORPUSCULAR HEMOGLOBIN 30 pg (27-31); MEAN CORPUSCULAR HGB CONC 34 g/dL (33-37); MEAN CORPUSCULAR VOLUME 87.6 fL (80-94); PLATELET COUNT (AUTO) 268 K/uL (140-450); RED BLOOD CELL COUNT(AUTO) 4.56 MIL/uL (4.20-5.40); RED CELL DISTRIBUTION WIDTH 13.9 % (11.6-13.7); WHITE BLOOD COUNT (AUTO) 12.9 K/uL (4.8-10.8)
[2019-02-26 01:28] LABS: ALBUMIN 3.8 g/dL (3.4-5.0); ANION GAP 13.7 (8-16); CARBON DIOXIDE 28.3 mmol/L (21-32); CREATININE 0.8 mg/dL (0.6-1.3); TOTAL BILIRUBIN 1.3 mg/dL (0.0-1.0)
[2019-02-26 01:32] LABS: PROTHROMBIN TIME 9.8 secs (10.8-13.4)
[2019-02-26 01:35] LABS: LYMPHOCYTES % (MANUAL) 11 % (20-46); MONOCYTES % (MANUAL) 2 % (5-12)
--- NOTE | 2019-02-26 01:52 | NUR ---
Pt report given to LARISSA ALFARO. Transfer of care at this time.
--- NOTE | 2019-02-26 02:00 | NUR ---
PT CAME INTO ER WITH C/O VAGINAL BLEED X 7 MONTHS PER PT. PT IS ALERT AND IS ABLE TO ANSWER QUESTIONS APPROPRIATELY. PT STATED SHE HAS HX OF BRAIN SURGERY LAST YEAR. NO BLOOD OR DISCHARGE NOTED AT THIS TIME. PT STATED SHE HAS NO PAIN 0/10 AT THIS TIME. ERMD MADE AWARE OF STATUS. SAFETY MEASURES IN PLACE.
--- NOTE | 2019-02-26 02:20 | NUR ---
PT AMBULATED TO THE RESTROOM INDEPENDENTLY AND GAVE U/A SPECIMEN.
--- NOTE | 2019-02-26 02:22 | NUR ---
Pt RECEIVED FROM LARISSA ALFARO. Transfer of care at this time.
--- NOTE | 2019-02-26 02:27 | NUR ---
PATIENT ALERT AND AWAKE, BREATHING EVEN AND UNLABORED
--- NOTE | 2019-02-26 02:50 | NUR ---
DR GAYLE MADE AWARE OF PT PAIN STILL 11/16
--- NOTE | 2019-02-26 03:20 | NUR ---
PATIENT DENIES PAIN AT THIS TIME, DOES NOT WANT PAIN MEDICATION
--- NOTE | 2019-02-26 04:06 | NUR ---
PATIENT RESTING WITH EYES CLOSED, BREATHING EVEN AND UNLABORED
--- NOTE | 2019-02-26 05:16 | NUR ---
PATIENT ALERT AND AWAKE, WAS ASSISTED TO BATHROOM
--- NOTE | 2019-02-26 06:06 | NUR ---
Patient to be transferred to [facility]. Is being transferred due to SUSPECTED UTERINE CANCER. Receiving facility has accepting physician and available space. ER physician has signed transfer form. Patient or responsible constitution party has agreed to transfer and signed form. Patient belongings inventoried and will be sent with patient. Copy of nursing notes, lab reports, EKG, Physicians Orders and X-rays to be sent with patient. Report called to NUBIA ALFARO at receiving facility. [facility] ambulance service has been called for transfer. ETA is 0640.
[2019-02-26 06:25] VITALS: BP 181/90
--- NOTE | 2019-02-26 06:25 | NUR ---
PATIENT TRANSFERED OUT OF FACILITY BY [facility]. PATIENT AOX4, BREATHING EVEN AND UNLABORED.
--- NOTE | 2019-02-26 06:25 | NUR ---
PATIENT CHANGED PAD BEFORE TRANSFER, STATED SHE CHANGED IT 2 TIMES TOTAL WHILE IN HOSPITAL, [facility] MADE AWARE
--- NOTE | 2019-02-26 11:02 | NUR ---
Late entry. Confirmed with RN that 0.9 NS IV completed at 0625
== END 2019-02-26 06:25 | disposition short-term general hospital (02) ==
LOC: MED 23:32
DX: N93.9 Abnormal uterine and vaginal bleeding, unspecified (principal); Z79.899 Other long term (current) drug therapy
CPT/HCPCS: 36415; 76830; 80053; 85025; 85610; 85730; 86900; 86901; 96361; 96374; 96375; 96376; 99285; J2270; J2405; J7030; Q0092; 99284